=== PATIENT | male | born 1975 | race African-American/Black ===

== ENCOUNTER 2021-01-22 09:21 | Emergency (ER) | payer BC ==
[~2021-01-22] VITALS: Ht 177.8 cm; Wt 74.8 kg
[2021-01-22 09:35] VITALS: BP 127/75
--- NOTE | 2021-01-22 09:37 | NUR ---
AT BEDSIDE FOR EVAL.
[2021-01-22 09:58] LABS: BASOPHILS % (AUTO) 0.6 % (0.0-2.0); EOSINOPHILS % (AUTO) 0.9 % (0.0-6.0); HEMATOCRIT 45 % (39-51); HEMOGLOBIN 15.1 g/dL (13.5-17.5); LYMPHOCYTES % (AUTO) 33.9 % (20.0-44.0); MEAN CORPUSCULAR HGB CONC 34 g/dl (31.0-36.0); MEAN CORPUSCULAR VOLUME 90 fL (80-96); MONOCYTES # (AUTO) 0.3 K/uL (0.1-1.30); MONOCYTES % (AUTO) 4.6 % (2.0-12.0); NEUTROPHILS # (AUTO) 3.5 K/uL (1.8-8.9); PLATELET COUNT (AUTO) 183 K/uL (150-450); RED BLOOD CELL COUNT(AUTO) 4.98 MIL/uL (4.5-6.0); WHITE BLOOD COUNT (AUTO) 5.9 K/uL (4.3-11.0)
[2021-01-22 10:05] LABS: CALCIUM, SERUM 9.2 mg/dL (8.5-10.1); CARBON DIOXIDE 27 mmol/L (21-32); CHLORIDE 104 mmol/L (98-107); CREATININE 1.1 mg/dL (0.6-1.3); GLUCOSE 113 mg/dL (74-106); POTASSIUM 3.9 mmol/L (3.5-5.1); SODIUM SERUM 139 mmol/L (136-145); UREA NITROGEN, BLOOD 13 mg/dL (7-18)
[2021-01-22 10:11] LABS: ALANINE AMINOTRANSFERASE 24 U/L (12-78); ALBUMIN 4.1 g/dL (3.4-5.0); ALKALINE PHOSPHATASE 63 U/L (46-116); ASPARTATE AMINOTRANSFERASE 16 U/L (15-37); BILIRUBIN,DIRECT 0.1 mg/dL (0.0-0.2); BILIRUBIN,TOTAL 0.5 mg/dL (0.2-1.0); TOTAL PROTEIN, SERUM 7.8 g/dL (6.4-8.2)
--- NOTE | 2021-01-22 10:37 | NUR ---
Patient discharged to home in stable condition. Written and verbal after care instructions given. Patient verbalizes understanding of instruction.
== END 2021-01-22 10:37 | disposition home or self-care (01) ==
LOC: EDUNIT# 09:21 → ER 09:25
DX: R42 Dizziness and giddiness (principal)
CPT/HCPCS: 36415; 80048-TC; 80076-TC; 84484-TC; 85025-TC

== ENCOUNTER 2023-07-31 07:49 | Emergency (ER) | payer BC, OTHER ==
[~2023-07-31] VITALS: Ht 177.8 cm; Wt 77.1 kg
[2023-07-31] MEDS ORDERED: MECLIZINE HCL 25 MG TABLET ONE (08:43)
[2023-07-31] MEDS: MECLIZINE HCL 12.5 MG TABLET PO ONE (08:49)
[2023-07-31 10:10] VITALS: BP 121/73; TEMP 89.2; O2SAT 100
== END 2023-07-31 09:50 | disposition home or self-care (01) ==
LOC: ER 07:49
DX: R42 Dizziness and giddiness (principal)
CPT/HCPCS: 99283; 71045; 93005; J8597; A7526